=== PATIENT | male | born 1995 | race Caucasian/White ===

== ENCOUNTER 2018-05-17 10:59 | Emergency (ER) | payer OTHER ==
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
[2018-05-17] MEDS: Bacitracin/Neomycin/Polymyxin B Oint 0.9 GM U/D Packet TOP ONE (11:33)
== END 2018-05-17 12:05 | disposition home or self-care (01) ==
LOC: LL.ED 10:59
DX: S51.812A Laceration without foreign body of left forearm, initial encounter (principal); I10 Essential (primary) hypertension; G47.00 Insomnia, unspecified; Z76.0 Encounter for issue of repeat prescription; F41.8 Other specified anxiety disorders; M15.0 Primary generalized (osteo)arthritis; E66.9 Obesity, unspecified; F17.210 Nicotine dependence, cigarettes, uncomplicated; Z88.8 Allergy status to other drugs, medicaments and biological substances; W26.8XXA Contact with other sharp object(s), not elsewhere classified, initial encounter
CPT/HCPCS: 12001; 99283